=== PATIENT | male | born 1965 | race Caucasian/White ===

== ENCOUNTER 2017-07-28 12:19 | Emergency (ER) | payer BC ==
[2017-07-28] MEDS ORDERED: NS 0.9% 1000 ML* 1,000 ML IV ONE (12:38)
[2017-07-28] MEDS ORDERED: PROCHLORPERAZINE INJ 5 MG/ML 2 ML VIAL IV PRN (12:38)
[2017-07-28] MEDS ORDERED: HYDROmorphone INJ* 1 MG/ML CARPUJECT SYRINGE IV ONE (12:38)
[2017-07-28] MEDS ORDERED: Ketorolac INJ* 30 MG/ML 1 ML VIAL IV PUSH ONE (12:38)
[2017-07-28] MEDS ORDERED: HYDROmorphone INJ* 2 MG/ML CARPUJECT SYRINGE ONE (12:45)
[2017-07-28 13:10] LABS: ABS Basophils 0 10^3/ul (0-0.2); ABS Eosinophils 0 10^3/ul (0-0.6); ABS Lymphocytes 0.6 10^3/ul (1.0-4.8); ABS Monocytes 0.4 10^3/ul (0-0.8); ABS Neutrophils 5.3 10^3/ul (1.5-7.7); ABS Nucleated RBC 0 10^3/ul; Eosinophil % 0.2 % (0-6); Hematocrit 46 % (42-52); Hemoglobin 15.9 g/dl (14.0-18.0); Lymphocyte % 9.6 % (25-47); Mean Corpuscular HGB Conc 34 g/dl (31-36); Mean Corpuscular Hemoglobin 31 pg (27-31); Mean Corpuscular Volume 89 fL (80-94); Mean Platelet Volume 7.8 um3 (7.4-10.4); Nucleated Red Blood Cells % 0.1; Platelet Count 234 10^3/ul (150-450); Red Cell Distribution Width 13 % (10.5-15); White Blood Count 6.4 10^3/ul (3.5-10.8)
[2017-07-28 13:28] LABS: EGFR Non-African American 65.3 (>60)
--- NOTE | 2017-07-28 13:38 | RAD ---
CLINICAL HISTORY: Right flank pain COMPARISON: None TECHNIQUE: Multiple contiguous axial CT scans were obtained of the abdomen and pelvis, without intravenous contrast enhancement. Coronal and sagittal multiplanar reformations are submitted for review. Oral contrast was not administered. FINDINGS: The study is limited by the lack of intravenous contrast. This limits evaluation of the solid organs and vasculature. LUNG BASES: The lung bases are clear. LIVER: The liver is normal in shape, size, contour, and attenuation. BILE DUCTS: There is no intrahepatic or extrahepatic biliary dilatation. GALLBLADDER: The gallbladder is normal, without pericholecystic inflammatory change. PANCREAS: The pancreas is normal, without mass or ductal dilatation. SPLEEN: Normal in size and appearance. UPPER GI TRACT: Evaluation of the gastrointestinal tract is limited by incomplete gastric distention. The upper GI tract is unremarkable. SMALL BOWEL AND MESENTERY: The small bowel is normal in contour, course, and caliber. There is no obstruction or dilatation. COLON: The colon is normal in contour, course, caliber. There is no pericolonic inflammatory change. There is a tubular, vermiform, hollow viscus that is blind ending, and originates from the cecum, consistent with a normal appendix. There is no periappendiceal inflammatory change. This is best seen on coronal images 40 through 57. ADRENALS: Normal bilaterally. KIDNEYS: There are punctate right renal calyceal stones. There is mild hydroureter with a 0.3 cm calculus of the right UVJ. There is mild perinephric stranding on the right. BLADDER: As noted above, there is a small calculus of the right UVJ. PELVIC ORGANS: The prostate gland is normal. The seminal vesicles are symmetric. AORTA: The aorta is normal. IVC: Unremarkable LYMPH NODES: There is no lymphadenopathy by size criteria. ABDOMINAL WALL: There is no evidence for abdominal wall hernia. BONES AND SOFT TISSUES: There are mild diffuse degenerative changes. OTHER: None IMPRESSION: RIGHT NEPHROLITHIASIS, INCLUDING A 0.3 CM RIGHT UVJ STONE WITH MILD RIGHT HYDRONEPHROSIS..
[2017-07-28 16:28] LABS: Urine Appearance Cloudy; Urine Blood 2+ (Negative); Urine Color Yellow; Urine Ketones Trace (Negative); Urine Protein Negative (Negative); Urine Specific Gravity 1.028 (1.010-1.030); Urine Urobilinogen Negative (Negative)
[2017-07-28 17:02] VITALS: BP 144/84
--- NOTE | 2017-07-28 18:13 | ED ---
Karen Giordano Gabriel, scribed for Osman Vaughn MD on 07/28/17 at 1249 . Abdominal Pain/Male - HPI Summary HPI Summary: This patient is a 52 year old M BIBA to [facility] accompanied by his with a chief complaint of RLQ pain that radiates into his groin that began earlier today. Pt states he had no pain this morning but later in the day he began having pain that gradually increased. The patient rates the pain 10/10 in severity. Symptoms alleviated by nothing, he has not taken any OTC medications. Patient denies urinary symptoms and nausea. NKDA - History of Current Complaint Stated Complaint: ABD PAIN Time Seen by Provider: 07/28/17 12:33 Hx Obtained From: Patient Onset/Duration: Gradual Onset, Still Present Timing: Constant Severity Initially: Mild Severity Currently: Severe Pain Intensity: 10 Pain Scale Used: 0-10 Numeric Location: Discrete At: RLQ Radiates: Yes Radiates to: Other - groin Associated Signs And Symptoms: Positive: Negative - nausea - Allergies/Home Medications Allergies/Adverse Reactions: Allergies Allergy/AdvReac Type Severity Reaction Status Date / Time No Known Allergies Allergy Verified 06/22/14 14:08 PMH/Surg Hx/FS Hx/Imm Hx Endocrine/Hematology History: Denies: Hx Sickle Cell Disease, Hx Thyroid Disease Cardiovascular History: Denies: Hx Coronary Artery Disease, Hx Deep Vein Thrombosis, Hx Pacemaker/ICD , Hx Valvular Heart Disease Respiratory History: Denies: Hx Chronic Obstructive Pulmonary Disease (COPD), Hx Lung Cancer, Hx Pleural Effusion GI History: Denies: Hx Gall Bladder Disease, Hx Gastrointestinal Bleed - Surgical History Surgery Procedure, Year, and Place: As , stomach surgery Infectious Disease History: Denies: Traveled Outside the [place] in Last 30 Days - Family History Known Family History: Negative: Respiratory Disease, Seizure Disorder - Social History Lives: With Family Alcohol Use: None Substance Use Type: Reports: None Smoking Status (MU): Never Smoked Tobacco Review of Systems Positive: Abdominal Pain - RLQ . Negative: Nausea Positive: no symptoms reported All Other Systems Reviewed And Are Negative: Yes Physical Exam - Summary Physical Exam Summary: Appearance: The patient is well-nourished in no acute distress and in mild pain distress Skin: The skin is warm and dry and skin color reflects adequate perfusion. HEENT: The head is normocephalic and atraumatic. The pupils are equal and reactive. The conjunctivae are clear and without drainage. Nares are patent and without drainage. Mouth reveals moist mucous membranes and the throat is without erythema and exudate. The external ears are intact. The ear canals are patent and without drainage. The tympanic membranes are intact. Neck: the neck is supple with full range of motion and non-tender. There are no carotid bruits. There is no neck vein distension. Respiratory: Chest is non-tender. Lungs are clear to auscultation and breath sounds are symmetrical and equal. Cardiovascular: Heart is regular rate and rhythm. There is no murmur or rub auscultated. There is no peripheral edema and pulses are symmetrical and equal. Abdomen: The abdomen is soft and mildly tender in the RLQ. There are normal bowel sounds heard in all four quadrants and there is no organomegaly palpated. Musculoskeletal: There is no back tenderness noted. Extremities are non-tender with full range of motion. There is good capillary refill. There is no peripheral edema or calf tenderness elicited. Neurological: Patient is alert and oriented to person, place and time. The patient has symmetrical motor strength in all four extremities. Cranial nerves are grossly intact. Deep tendon reflexes are symmetrical and equal in all four extremities. Psychiatric: The patient has an appropriate affect and does not exhibit any anxiety or depression. Triage Information Reviewed: Yes Vital Signs On Initial Exam: Initial Vitals Temp Pulse Resp BP Pulse Ox 98.9 F 83 18 104/86 98 07/28/17 12:37 07/28/17 12:37 07/28/17 12:37 07/28/17 12:37 07/28/17 12:37 Vital Signs Reviewed: Yes Diagnostics - Vital Signs Vital Signs Temp Pulse Resp BP Pulse Ox 07/28/17 17:01 98.0 F 81 20 144/84 98 07/28/17 16:29 81 138/98 93 07/28/17 16:01 72 97 07/28/17 15:59 73 129/90 97 07/28/17 12:50 18 07/28/17 12:37 98.9 F 83 18 104/86 98 - Laboratory Lab Results: Lab Results 07/28/17 07/28/17 07/28/17 Range/Units 12:55 12:55 12:55 WBC 6.4 (3.5-10.8) 10^3/ul RBC 5.20 (4.0-5.4) 10^6/ul Hgb 15.9 (14.0-18.0) g/dl Hct 46 (42-52) % MCV 89 (80-94) fL MCH 31 (27-31) pg MCHC 34 (31-36) g/dl RDW 13 (10.5-15) % Plt Count 234 (150-450) 10^3/ul MPV 7.8 (7.4-10.4) um3 Neut % (Auto) 82.8 (38-83) % Lymph % (Auto) 9.6 L (25-47) % [place] % (Auto) 7.0 (0-7) % Eos % (Auto) 0.2 (0-6) % Baso % (Auto) 0.4 (0-2) % Absolute Neuts (auto) 5.3 (1.5-7.7) 10^3/ul Absolute Lymphs (auto) 0.6 L (1.0-4.8) 10^3/ul Absolute Monos (auto) 0.4 (0-0.8) 10^3/ul Absolute Eos (auto) 0 (0-0.6) 10^3/ul Absolute Basos (auto) 0 (0-0.2) 10^3/ul Absolute Nucleated RBC 0 10^3/ul Nucleated RBC % 0.1 Sodium 140 (139-145) mmol/L Potassium 3.5 (3.5-5.0) mmol/L Chloride 107 (101-111) mmol/L Carbon Dioxide 25 (22-32) mmol/L Anion Gap 8 (2-11) mmol/L BUN 29 H (6-24) mg/dL Creatinine 1.18 H (0.67-1.17) mg/dL Est GFR ( Amer) 84.0 (>60) Est GFR (Non-Af Amer) 65.3 (>60) BUN/Creatinine Ratio 24.6 H (8-20) Glucose 144 H (70-100) mg/dL Lactic Acid 1.8 (0.5-2.0) mmol/L Calcium 9.7 (8.6-10.3) mg/dL Total Bilirubin 0.50 (0.2-1.0) mg/dL AST 23 (13-39) U/L ALT 14 (7-52) U/L Alkaline Phosphatase 66 (34-104) U/L C-Reactive Protein 1.75 (< 5.00) mg/L Total Protein 6.9 (6.4-8.9) g/dL Albumin 4.1 (3.2-5.2) g/dL Globulin 2.8 (2-4) g/dL Albumin/Globulin Ratio 1.5 (1-3) Lipase 39 (11.0-82.0) U/L Urine Color Urine Appearance Urine pH (5-9) Ur Specific [place] (1.010-1.030) Urine Protein (Negative) Urine Ketones (Negative) Urine Blood (Negative) Urine Nitrate (Negative) Urine Bilirubin (Negative) Urine Urobilinogen (Negative) Ur Leukocyte Esterase (Negative) Urine WBC (Auto) (Absent) Urine RBC (Auto) (Absent) Urine Bacteria (Absent) Urine Glucose (Negative) 05/25/18 Range/Units 16:01 WBC (3.5-10.8) 10^3/ul RBC (4.0-5.4) 10^6/ul Hgb (14.0-18.0) g/dl Hct (42-52) % MCV (80-94) fL MCH (27-31) pg MCHC (31-36) g/dl RDW (10.5-15) % Plt Count (150-450) 10^3/ul MPV (7.4-10.4) um3 Neut % (Auto) (38-83) % Lymph % (Auto) (25-47) % [place] % (Auto) (0-7) % Eos % (Auto) (0-6) % Baso % (Auto) (0-2) % Absolute Neuts (auto) (1.5-7.7) 10^3/ul Absolute Lymphs (auto) (1.0-4.8) 10^3/ul Absolute Monos (auto) (0-0.8) 10^3/ul Absolute Eos (auto) (0-0.6) 10^3/ul Absolute Basos (auto) (0-0.2) 10^3/ul Absolute Nucleated RBC 10^3/ul Nucleated RBC % Sodium (139-145) mmol/L Potassium (3.5-5.0) mmol/L Chloride (101-111) mmol/L Carbon Dioxide (22-32) mmol/L Anion Gap (2-11) mmol/L BUN (6-24) mg/dL Creatinine (0.67-1.17) mg/dL Est GFR ( Amer) (>60) Est GFR (Non-Af Amer) (>60) BUN/Creatinine Ratio (8-20) Glucose (70-100) mg/dL Lactic Acid (0.5-2.0) mmol/L Calcium (8.6-10.3) mg/dL Total Bilirubin (0.2-1.0) mg/dL AST (13-39) U/L ALT (7-52) U/L Alkaline Phosphatase (34-104) U/L C-Reactive Protein (< 5.00) mg/L Total Protein (6.4-8.9) g/dL Albumin (3.2-5.2) g/dL Globulin (2-4) g/dL Albumin/Globulin Ratio (1-3) Lipase (11.0-82.0) U/L Urine Color Yellow Urine Appearance Cloudy Urine pH 5.0 (5-9) Ur Specific [place] 1.028 (1.010-1.030) Urine Protein Negative (Negative) Urine Ketones Trace A (Negative) Urine Blood 2+ A (Negative) Urine Nitrate Negative (Negative) Urine Bilirubin Negative (Negative) Urine Urobilinogen Negative (Negative) Ur Leukocyte Esterase Negative (Negative) Urine WBC (Auto) Trace(0-5/hpf) (Absent) Urine RBC (Auto) 3+(>10/hpf) A (Absent) Urine Bacteria Absent (Absent) Urine Glucose Negative (Negative) Result Diagrams: 07/28/17 12:55 07/28/17 12:55 Lab Statement: Any lab studies that have been ordered have been reviewed, and results considered in the medical decision making process. - CT CT ABD/Pelvis CT Interpretation Completed By: Radiologist - RIGHT NEPHROLITHIASIS, INCLUDING A 0.3 CM RIGHT UVJ STONE WITH MILD RIGHT HYDRONEPHROSIS. ED physician has reviewed this radiology report. Abdominal Pain Fem Course/Dx - Course Course Of Treatment: Mr. Cody presented with the acute onset of right flank pain radiating to his right groin. He was in obvious distress on arrival, an IV was initiated and he was given pain medications of Dilaudid and Compazine and Toradol. CT scan revealed a 36 mm right UVJ stone with mild hydronephrosis. Urinalysis was negative except for a small amount of blood. He felt a lot improved and was discharged with the diagnosis of kidney stone with the typical treatment. - Diagnoses Provider Diagnoses: Kidney stone Discharge - Sign-Out/Discharge Documenting (check all that apply): Discharge/Admit/Transfer - Discharge Plan Condition: Stable Disposition: HOME Prescriptions: HYDROcodone/ACETAMIN 5-325 MG* [[facility] [place] 5-325 TAB*] 1 tab PO Q6H PRN #20 tab MDD 4 PRN Reason: Pain HYDROcodone/ACETAMIN 5-325 MG* [[facility] [place] 5-325 TAB*] 1 tab PO Q6H PRN #20 tab MDD 4 PRN Reason: Pain Tamsulosin CAP* [Flomax CAP*] 0.4 mg PO DAILY #7 cap Tamsulosin CAP* [Flomax CAP*] 0.4 mg PO DAILY #7 cap Patient Education Materials: Hydrocodone/Acetaminophen (By mouth), Tamsulosin ( By mouth), Kidney Stones (ED) Referrals: Ean Metcalf MD [Primary Care Provider] - 3 Days Additional Instructions: RETURN TO THE EMERGENCY DEPARTMENT FOR CHANGING OR WORSENING SYMPTOMS - Billing Disposition and Condition Condition: STABLE Disposition: HOME The documentation as recorded by the Karen conner Gabriel accurately reflects the service I personally performed and the decisions made by , Osman Vaughn MD.
== END 2017-07-28 17:01 | disposition home or self-care (01) ==
LOC: ED 12:19
DX: N13.2 Hydronephrosis with renal and ureteral calculous obstruction (principal)
CPT/HCPCS: 36415; 74176; 80053; 81003; 81015; 83605; 83690; 85025; 86140; 87086; 96374; 96375; 99283; J1170; J1885